=== PATIENT | male | born 1945 | race Two or more races ===

== ENCOUNTER 2018-01-30 14:54 | Outpatient (CLI) | payer OTHER | END 2018-01-30 15:02 | disposition home or self-care (01) | LOC: LAB 14:54 | DX: R31.0 Gross hematuria (principal); Z51.81 Encounter for therapeutic drug level monitoring ==

== ENCOUNTER 2018-02-10 08:34 | Outpatient (CLI) | payer OTHER | END 2018-02-10 08:49 | disposition home or self-care (01) | LOC: TOM 08:34 | DX: R31.0 Gross hematuria (principal) | CPT/HCPCS: 74178; Q9965 ==

== ENCOUNTER 2018-04-28 07:52 | Outpatient (CLI) | payer OTHER | END 2018-04-28 08:48 | disposition home or self-care (01) | LOC: TOM 07:52 | DX: R31.0 Gross hematuria (principal) | CPT/HCPCS: 74178; Q9965 ==

== ENCOUNTER → 2018-05-02 | Emergency (ER) | payer OTHER | END | disposition left against medical advice (07) | LOC: ER 14:04 | DX: Z53.20 Procedure and treatment not carried out because of patient's decision for unspecified reasons (principal) ==

== ENCOUNTER 2018-09-02 08:42 | Outpatient (CLI) | payer OTHER | END 2018-09-02 08:54 | disposition home or self-care (01) | LOC: TOM 08:42 | DX: C67.9 Malignant neoplasm of bladder, unspecified (principal) | CPT/HCPCS: 74178; Q9965 ==

== ENCOUNTER 2021-03-28 12:32 | Outpatient (CLI) | payer OTHER | END 2021-03-28 12:35 | disposition home or self-care (01) | LOC: LAB 12:32 | PROVIDERS: ATTEND Radiology Diagnostic Radiology | DX: N32.89 Other specified disorders of bladder (principal) ==

== ENCOUNTER 2021-04-05 09:34 | Outpatient (CLI) | payer OTHER | END 2021-04-05 09:36 | disposition home or self-care (01) | LOC: TOM 09:34 | DX: D49.4 Neoplasm of unspecified behavior of bladder (principal) | CPT/HCPCS: 74178; Q9965 ==

== ENCOUNTER 2021-12-17 09:21 | Outpatient (CLI) | payer OTHER | END 2021-12-17 10:00 | disposition home or self-care (01) | LOC: SONOGRAMA 09:21 | DX: K76.0 Fatty (change of) liver, not elsewhere classified (principal) ==

== ENCOUNTER 2022-02-26 08:28 | Outpatient (CLI) | payer OTHER | END 2022-02-26 08:36 | disposition home or self-care (01) | LOC: TOM 08:28 | PROVIDERS: ATTEND Urology | DX: C67.9 Malignant neoplasm of bladder, unspecified (principal) | CPT/HCPCS: 74177; Q9965 ==

== ENCOUNTER 2022-03-25 14:54 | Outpatient (CLI) | payer OTHER | END 2022-03-25 14:58 | disposition home or self-care (01) | LOC: RAD 14:54 | PROVIDERS: ATTEND Orthopaedic Surgery | DX: I80.221 Phlebitis and thrombophlebitis of right popliteal vein (principal) ==

== ENCOUNTER 2022-03-28 09:44 | Outpatient (CLI) | payer OTHER | END 2022-03-28 09:46 | disposition home or self-care (01) | LOC: NUCLEAR 09:44 | PROVIDERS: ATTEND Orthopaedic Surgery | DX: I80.221 Phlebitis and thrombophlebitis of right popliteal vein (principal) ==

== ENCOUNTER 2022-04-25 08:33 | Outpatient (CLI) | payer OTHER | END 2022-04-25 08:41 | disposition home or self-care (01) | LOC: TOM 08:33 | PROVIDERS: ATTEND Family Medicine | DX: M11.261 Other chondrocalcinosis, right knee (principal); M13.861 Other specified arthritis, right knee ==

== ENCOUNTER 2022-08-07 10:47 | Outpatient (CLI) | payer OTHER | END 2022-08-07 10:58 | disposition home or self-care (01) | LOC: MRI 10:47 | PROVIDERS: ATTEND Family Medicine | DX: M25.561 Pain in right knee (principal); M25.461 Effusion, right knee; M93.961 Osteochondropathy, unspecified, right lower leg | CPT/HCPCS: 73721 ==

== ENCOUNTER 2022-10-30 08:53 | Outpatient (CLI) | payer OTHER | END 2022-10-30 08:59 | disposition home or self-care (01) | LOC: TOM 08:53 | DX: C49.21 Malignant neoplasm of connective and soft tissue of right lower limb, including hip (principal) | CPT/HCPCS: 71260; 74177; Q9965 ==

== ENCOUNTER 2023-03-13 07:52 | Outpatient (CLI) | payer OTHER | END 2023-03-13 07:54 | disposition home or self-care (01) | LOC: NUCLEAR 07:52 | DX: C49.21 Malignant neoplasm of connective and soft tissue of right lower limb, including hip (principal) | CPT/HCPCS: 78816; A9552 ==

== ENCOUNTER 2023-05-13 08:47 | Outpatient (CLI) | payer OTHER | END 2023-05-13 08:59 | disposition home or self-care (01) | LOC: TOM 08:47 | DX: C49.21 Malignant neoplasm of connective and soft tissue of right lower limb, including hip (principal) | CPT/HCPCS: 71260; Q9965 ==

== ENCOUNTER 2024-01-19 14:45 | Inpatient (IN) | payer OTHER ==
[~2024-01-19] VITALS: Ht 165.1 cm; Wt 77.1 kg
[2024-01-19] MEDS ORDERED: TOPROL XL25 M1 BC (16:31)
[2024-01-19] MEDS ORDERED: ZESTRIL2.5 MG PO (16:32)
[2024-01-19] MEDS ORDERED: XATMEP2.5 MG/1 M (16:33)
[2024-01-19] MEDS ORDERED: ZETIA10 MG PO (16:33)
[2024-01-19] MEDS ORDERED: BETIMOL5 ML OP (16:34)
[2024-01-19] MEDS ORDERED: CEFTRIAXONE SODIUM 1,000 MG VIAL IV ONE (17:00)
[2024-01-19 17:50] LABS: URINE APPEARANCE Turbid; URINE BILIRRUBIN Small (NEGATIVE); URINE BLOOD Large; URINE COLOR Dark Yellow; URINE GLUCOSE Negative (NEGATIVE); URINE KETONE Negative (NEGATIVE); URINE LEUKOCYTE Small; URINE NITRATE Negative; URINE PROTEIN >=1000 (NEGATIVE)
[2024-01-19 17:50] LABS: HEMATOCRIT 24.6 % (39.0-48.0); MEAN CELL VOLUME 93.7 fL (80.0-100.00); MEAN CORPUSCULAR HGB CONC 34.5 g/dl (32.0-36.0); RED BLOOD COUNT 2.62 M/uL (4.00-6.00); RED CELL DISTRIBUTION WIDTH 16.2 % (11.5-14.5)
[2024-01-19 17:51] LABS: URINE BACTERIA 453.5 uL (0.0-1933); URINE EPITHELIAL CELLS 14.5 uL (0.0-38.8); URINE WBC 32.6 uL (0.0-23.2)
[2024-01-19 17:54] LABS: HEMOGLOBIN 8.5 g/dL (13-16.00); MEAN CORPUSCULAR HEMOGLOBIN 32.4 pg (27.00-32.0); PLATELET COUNT 18 K/uL (150-450)
[2024-01-19 18:05] LABS: ALBUMIN 3.3 gm/dL (3.4-5.0); BILIRUBIN TOTAL 1.78 mg/dL (0.3-1.2); CALCIUM 9.5 mg/dL (8.5-10.1); CREATININE SERUM 0.63 mg/dL (0.70-1.30); GFR 123.82; GLOBULINA 3.5 G/DL (2.4-3.5); POTASSIUM 3.31 mEq/L (3.5-5.1); PROSTATIC SPECIFIC ANTIGEN 1.01 NG/ML (0.010-4.00); TOTAL PROTEIN 6.8 gm/dL (6.4-8.2)
[2024-01-19 18:12] LABS: URINE CAST 1.06 uL (0.0-1.40); URINE RBC > 10558.9 uL (0.0-20.8)
[2024-01-19] MEDS ORDERED: 0.9 % SODIUM CHLORIDE 1,000 ML IV SCH (20:45)
[2024-01-19] MEDS ORDERED: CEFTRIAXONE SODIUM 2,000 MG in 0.9 % SODIUM CHLORIDE 100 ML IV SCH (20:47)
[2024-01-19] MEDS ORDERED: ACETAMINOPHEN 500 MG GEL..CAP PO PRN (21:00)
[2024-01-19] MEDS ORDERED: FUROsemide 20 MG/2 ML VIAL IV SCH (21:00)
[2024-01-19] MEDS ORDERED: POTASSIUM CHLORIDE 20MEQ/100ML H2O PB IV ONE (21:00)
[2024-01-20] VITALS (7 sets, daily range): BP systolic 113–114; BP diastolic 43–50; O2SAT 96–99
[2024-01-20 00:03] LABS: INR 1.15; PROTHROMBIN TIME 12.4 SECONDS (9.0-11.5)
[2024-01-20 00:06] LABS: D DIMER 1.35 MG/L; PARTIAL THROMBOPLASTIN TIME 31.6 SECONDS (22.0-34.0)
[2024-01-20] MEDS ORDERED: PANTOPRAZOLE SODIUM 40 MG/VIAL VIAL IV SCH (09:00)
[2024-01-20] MEDS ORDERED: METOPROLOL SUCCINATE 25 MG TAB.SR.24H PO SCH (09:00)
[2024-01-20] MEDS ORDERED: LISINOPRIL 2.5 MG TABLET PO SCH (09:00)
[2024-01-20] MEDS ORDERED: LACTOBACILLUS ACIDOPHILUS 1 CAP CAP PO SCH (17:00)
[2024-01-20] MEDS ORDERED: CHLORPROMAZINE HCL 25 MG/ML AMPUL IM STA (18:52)
[2024-01-20 23:38] LABS: MEAN CELL VOLUME 93.5 fL (80.0-100.00); MEAN CORPUSCULAR HGB CONC 34.7 g/dl (32.0-36.0); RED CELL DISTRIBUTION WIDTH 15.8 % (11.5-14.5)
[2024-01-21] VITALS (8 sets, daily range): BP systolic 110–128; BP diastolic 49–71; O2SAT 92–98
[2024-01-21] MEDS ORDERED: CHLORPROMAZINE HCL 25 MG/ML AMPUL IM SCH
[2024-01-21 02:45] LABS: MEAN CORPUSCULAR HEMOGLOBIN 32.6 pg (27.00-32.0)
[2024-01-21 02:47] LABS: HEMATOCRIT 21.5 % (39.0-48.0); PLATELET COUNT 59 K/uL (150-450)
[2024-01-21 02:50] LABS: HEMOGLOBIN 7.5 g/dL (13-16.00)
[2024-01-21 06:53] LABS: MEAN CELL VOLUME 93.7 fL (80.0-100.00); MEAN CORPUSCULAR HGB CONC 34.9 g/dl (32.0-36.0); RED BLOOD COUNT 2.22 M/uL (4.00-6.00); RED CELL DISTRIBUTION WIDTH 16.1 % (11.5-14.5)
[2024-01-21 07:08] LABS: ALBUMIN 2.8 gm/dL (3.4-5.0); BILIRUBIN TOTAL 0.64 mg/dL (0.3-1.2); CALCIUM 8.9 mg/dL (8.5-10.1); CREATININE SERUM 0.55 mg/dL (0.70-1.30); GFR 144.83; POTASSIUM 3.55 mEq/L (3.5-5.1); TOTAL PROTEIN 5.8 gm/dL (6.4-8.2)
[2024-01-21 07:40] LABS: C-REACTIVE PROTEIN 6.19 MG/DL (0.00-0.29)
[2024-01-21 07:41] LABS: MAGNESIUM 1.3 mg/dL (1.8-2.4)
[2024-01-21 07:50] LABS: HEMATOCRIT 20.8 % (39.0-48.0); MEAN CORPUSCULAR HEMOGLOBIN 32.8 pg (27.00-32.0)
[2024-01-21 07:51] LABS: PLATELET COUNT 53 K/uL (150-450)
[2024-01-21 08:45] LABS: HEMOGLOBIN 7.3 g/dL (13-16.00)
[2024-01-21] MEDS ORDERED: FILGRASTIM-AAFI 300 MCG/0.5 ML SYRINGE SUBCUTANEO SCH (09:00)
[2024-01-21] MEDS ORDERED: MAGNESIUM SULFATE IN WATER 50 ML IV NR (11:00)
[2024-01-22 01:18] LABS: HEMATOCRIT 27.8 % (39.0-48.0); MEAN CELL VOLUME 93.5 fL (80.0-100.00); MEAN CORPUSCULAR HGB CONC 33.7 g/dl (32.0-36.0); RED BLOOD COUNT 2.98 M/uL (4.00-6.00)
[2024-01-22 02:01] VITALS: BP 137/77; O2SAT 97
[2024-01-22 02:10] VITALS: O2SAT 94
[2024-01-22 02:14] LABS: MEAN CORPUSCULAR HEMOGLOBIN 31.5 pg (27.00-32.0)
[2024-01-22 02:23] LABS: HEMOGLOBIN 9.4 g/dL (13-16.00); PLATELET COUNT 61 K/uL (150-450)
[2024-01-22 06:18] VITALS: O2SAT 95
[2024-01-22 09:12] VITALS: BP 112/60; O2SAT 100
[2024-01-22 09:44] VITALS: O2SAT 94
[2024-01-22 13:29] VITALS: O2SAT 95
== END 2024-01-22 15:38 | disposition home or self-care (01) | DRG 690 ==
LOC: ER 14:47 → MEDJ 21:56
PROVIDERS: General Practice; Internal Medicine Infectious Disease; ADMIT Internal Medicine; ATTEND Internal Medicine
PROC: BW21ZZZ Computerized Tomography (CT Scan) of Abdomen and Pelvis (ICD-10-PCS; 2024-01-19)
PROC: BW21YZZ Computerized Tomography (CT Scan) of Abdomen and Pelvis using Other Contrast (ICD-10-PCS; principal; 2024-01-20)
PROC: 4A12X4Z Monitoring of Cardiac Electrical Activity, External Approach (ICD-10-PCS; 2024-01-20)
PROC: 30233R1 Transfusion of Nonautologous Platelets into Peripheral Vein, Percutaneous Approach (ICD-10-PCS; 2024-01-20)
PROC: 30233N1 Transfusion of Nonautologous Red Blood Cells into Peripheral Vein, Percutaneous Approach (ICD-10-PCS; 2024-01-21)
DX: N39.0 Urinary tract infection, site not specified (principal); C49.21 Malignant neoplasm of connective and soft tissue of right lower limb, including hip; D61.818 Other pancytopenia; R31.0 Gross hematuria; D69.6 Thrombocytopenia, unspecified; E87.6 Hypokalemia; I10 Essential (primary) hypertension; D64.9 Anemia, unspecified; E78.5 Hyperlipidemia, unspecified

== ENCOUNTER 2024-02-05 07:08 | Outpatient (CLI) | payer OTHER ==
[~2024-02-05 07:08] MED LIST: BETIMOL5 ML OP; TOPROL XL25 M1 BC; XATMEP2.5 MG/1 M; ZESTRIL2.5 MG PO; ZETIA10 MG PO
== END 2024-02-05 07:09 | disposition home or self-care (01) ==
LOC: NUCLEAR 07:08
PROVIDERS: ATTEND Internal Medicine Hematology & Oncology
DX: C49.21 Malignant neoplasm of connective and soft tissue of right lower limb, including hip (principal)
CPT/HCPCS: 78816; A9552

== ENCOUNTER → 2024-05-05 09:04 | Outpatient (CLI) | payer OTHER ==
[2024-05-05 10:16] LABS: CREATININE SERUM 0.7 mg/dL (0.70-1.30); GFR 109.64
== END | disposition home or self-care (01) ==
LOC: LAB 09:04
PROVIDERS: ATTEND Radiology Diagnostic Radiology
DX: C49.21 Malignant neoplasm of connective and soft tissue of right lower limb, including hip (principal)

== ENCOUNTER 2024-05-05 09:36 | Outpatient (CLI) | payer OTHER | END 2024-05-05 09:38 | disposition home or self-care (01) | LOC: TOM 09:36 | DX: C49.21 Malignant neoplasm of connective and soft tissue of right lower limb, including hip (principal) | CPT/HCPCS: 71260; Q9965 ==

== ENCOUNTER 2024-08-05 08:03 | Outpatient (CLI) | payer OTHER | END 2024-08-05 08:04 | disposition home or self-care (01) | LOC: NUCLEAR 08:03 | DX: C49.21 Malignant neoplasm of connective and soft tissue of right lower limb, including hip (principal) | CPT/HCPCS: 78816; A9552 ==

== ENCOUNTER 2024-09-30 08:09 | Outpatient (CLI) | payer OTHER | END 2024-09-30 08:23 | disposition home or self-care (01) | LOC: TOM 08:09 | DX: C49.21 Malignant neoplasm of connective and soft tissue of right lower limb, including hip (principal) | CPT/HCPCS: 71260; Q9965 ==